=== PATIENT | male | born 1955 | race Caucasian/White ===

== ENCOUNTER 2018-07-31 15:39 | Inpatient (IN) | payer SELFPAY ==
[~2018-07-31] VITALS: Ht 180.3 cm; Wt 95.9 kg
[2018-07-31] VITALS (15 sets, daily range): BP systolic 94–154; BP diastolic 48–98
[2018-07-31] MEDS ORDERED: PANTOPRAZOLE 40 MG/10 ML VIAL IV ONE ×3 (17:05→17:30)
[2018-07-31 17:15] LABS: Basophils # (auto) 0 uL; Eosinophils # (auto) 0 uL; Lymphocytes # (auto) 0.8 uL; Monocytes # (auto) 0.1 uL; Nucleated Red Blood Cells % 0.2 %; White Blood Cell 3.9 10^3/uL (4.4-10.8)
[2018-07-31] MEDS ORDERED: SODIUM CHLORIDE 0.9% 1,000 ML IV ONE ×2 (17:15→17:30)
[2018-07-31 17:17] LABS: Basophils % (auto) 0.4 % (0.0-2.0); Hematocrit 11.7 % (41.0-53.0); Lymphocytes % (auto) 21.8 % (10.0-50.0); Mean Corpuscular Hemoglobin 44.4 pg (28.0-32.0); Mean Corpuscular Hgb Conc. 33.8 g/dL (32.0-36.0); Mean Corpuscular Volume 131.6 fL (80.0-100.0); Neutrophils # (auto) 2.8 uL; Neutrophils % (auto) 73.8 % (37.0-80.0); Platelet Count (auto) 44 10^3/uL (140-450); Red Blood Cells 0.89 10^6/uL (4.5-5.90)
[2018-07-31 17:26] LABS: INR 1.31 (0.9-1.15); Partial Thromboplastin Time 25.3 sec (23.78-33.04); Prothrombin Time 13.8 sec (9.27-12.13)
[2018-07-31 17:31] LABS: Red Cell Distribution Width 20.3 % (11.8-14.3)
[2018-07-31 17:33] LABS: Hemoglobin 3.9 g/dL (13.5-17.5)
[2018-07-31 17:35] LABS: Albumin 3.7 g/dL (3.4-5.0); BUN/Creatinine Ratio 12.9; Calcium 7.9 mg/dL (8.5-10.1)
[2018-07-31 17:37] LABS: Total Protein 6.8 g/dL (6.4-8.2)
[2018-07-31 17:49] LABS: Magnesium 2.6 mg/dL (1.6-2.6)
[2018-07-31] MEDS ORDERED: LORazepam 2MG/ML-1ML VIAL ONE (18:05)
[2018-07-31] MEDS ORDERED: LORazepam 2MG/ML-1ML VIAL IV ONE (18:15)
[2018-07-31] MEDS ORDERED: NITROGLYCERIN 0.4 MG SL TAB SL PRN (18:30)
[2018-07-31] MEDS ORDERED: LACTULOSE 20Gm/30ML SOLN PO PRN (18:30)
[2018-07-31] MEDS ORDERED: LORazepam 0.5 MG TAB PO PRN (18:30)
[2018-07-31] MEDS ORDERED: TEMAZEPAM 15 MG CAP PO PRN (18:30)
[2018-07-31] MEDS ORDERED: MORPHINE SULFATE 4 MG/ML SYR/VIAL IV PRN ×3 (18:30)
[2018-07-31] MEDS ORDERED: PROMETHAZINE HCL 25 MG/ML 1ML IV PRN (18:30)
[2018-07-31] MEDS: SODIUM CHLORIDE 0.9% 1,000 ML IV SCH (18:32)
--- NOTE | 2018-07-31 20:35 | NUR ---
Telemetry admit from ER LINN HUTCHISON SR admitted to Telemetry unit. Patient oriented to DARRIN BUENROSTRO RN primary RN, unit, room, bed, and unit policies regarding patient care and visiting hours. Patient now on continuous telemetry monitoring, tele box # 9 and telemetry reading on arrival to unit is sinus tachycardia. Son is at bedside. Patient is currently infusing his first unit of PRBCs. VSS WNL. Patient ambulated to the bed without assist. Patient on room air, weighed by bedscale and encouraged to call if they need something. All questions and concerns addressed, patient verbalized understanding.
--- NOTE | 2018-07-31 21:00 | NUR ---
Medication reconciliation Patient's son said he would bring a list of medications the patient takes at home tomorrow 08/01/18.
--- NOTE | 2018-07-31 21:35 | NUR ---
First unit of PRBCs transfused.
--- NOTE | 2018-07-31 22:12 | NUR ---
Second unit of packed red blood cells infusing. VS are 98.3 temperature, BP- 94/73, RR- 16, O2 SAT-97%, HR-94, patient is not complaining of pain at this time.
--- NOTE | 2018-07-31 22:27 | NUR ---
15 min since the second unit was infusing. Patient is not showing S/S of distress, pain, SOB, or adverse reaction. Will continue to monitor patient and vital signs.
[2018-08-01] VITALS (19 sets, daily range): BP systolic 91–132; BP diastolic 40–68
--- NOTE | 2018-08-01 00:30 | NUR ---
Second unit of PRBCs infused. Patient is not complaining of distress, SOB, or pain. Will reassess VS in one hour.
[2018-08-01 01:15] LABS: Hematocrit 16.9 % (41.0-53.0)
[2018-08-01 01:17] LABS: Hemoglobin 5.9 g/dL (13.5-17.5)
--- NOTE | 2018-08-01 01:21 | NUR ---
Critical lab value received. Hemoglobin is 5.9. Paged hospitalist.
--- NOTE | 2018-08-01 01:30 | NUR ---
One hour post transfusion vitals. BP-123/59. HR-90. RR-16. T-98.8. O2 sat-97%.
--- NOTE | 2018-08-01 02:20 | NUR ---
Hospitalist called back. New orders for two more units of PRBCs
--- NOTE | 2018-08-01 05:38 | NUR ---
First unit of PRBCs infusing. VSS WNL. Instructed patient to verbalize if he feels any adverse reactions to the blood, patient verbalized understanding. Will monitor patient closely for next 15 min.
--- NOTE | 2018-08-01 05:53 | NUR ---
First 15 min after transfusion began, patient is not showing S/S of distress or SOB. Patient verbalizes no pain. Will continue transfusion, increase rate, and continue to monitor vitals.
--- NOTE | 2018-08-01 07:39 | NUR ---
Closing shift note Patient is resting in bed. Third unit of blood is still transfusing. No S/S of distress, pain, or SOB. Will endorse care to Dima lord RN
--- NOTE | 2018-08-01 08:30 | NUR ---
THIRD UNIT OF BLOOD TRANSFUED Addendum: 08/01/18 at 0833 by Dima Butts RN RN THIRD UNIT OF BLOOD TRANSFUSED. NO S/S OF ASA, PT SITTING IN BED EATING BREAKFAST, SONS AT BEDSIDE. VS: 98.2, 74, 18, 125/57, 95% ON RA, 010. WILL CONTINUE TO MONITOR.
[2018-08-01 09:38] LABS: Hematocrit 20.5 % (41.0-53.0); Hemoglobin 7.1 g/dL (13.5-17.5)
[2018-08-01 09:54] LABS: Cholesterol 61 mg/dL (< 200); HDL Cholesterol 12 mg/dL (40-59); LDL Cholesterol 42 mg/dL (< 100); Triglycerides 164 mg/dL (< 150)
[2018-08-01] MEDS: PANTOPRAZOLE 40 MG TAB PO SCH (09:56)
[2018-08-01] MEDS: SODIUM CHLORIDE 0.9% 1,000 ML IV SCH ×2 (09:56→15:24)
--- NOTE | 2018-08-01 11:30 | NUR ---
FOURTH UNIT OF BLOOD STARTED AT 1130 THOUGH 22G CATHETER AT RIGHT FA @ 60ML/HR USING BLOOD TRANSFUSION TUBING. UNIT OF BLOOD VERIFIED BY ME AND KENNETH AGUIRRE. PT WAS INSTRUCTED TO NOTIFY NURSE ANY S/S OF CHILLS, WHEEZING, HEADACHE, N/V, BACK PAIN. VERBALIZED UNDERSTANDING. VS: 98.2, 74, 20, 125/57, 95% ON RA, 0/10. WILL CONTINUE TO MONITOR.
--- NOTE | 2018-08-01 11:45 | NUR ---
NO C/O PAIN/FEVER/CHILLS, SOB OR N/V. PRCBs INCREASED TO 120ML/HR. VS: 97.5, 85, 20, 118/52, 97% 0/10. WILL CONTINUE CARE.
--- NOTE | 2018-08-01 12:30 | NUR ---
NUTRITION CONSULT/ASSESSMENT NOTES Please refer to link notes of nutrition screen form filed under the intervention section of the plan of care for further details. Est. Needs: 1950 kcal to 2400 kcal (20-25 kcal/kgBW), 77 gms to 97 gms pro (0.8-1.0 gms/kgBW). Will continue to monitor pertinent labs and reassess nutrient need prn Thank you for this consult. Addendum: 08/01/18 at [address] Amended: Links added.
--- NOTE | 2018-08-01 14:10 | NUR ---
DR. RODRIGUEZ AT BEDSIDE FOR GI CONSULT. PLAN TO DO COLONOSCOPY ON SATURDAY.
--- NOTE | 2018-08-01 14:15 | NUR ---
FORTH UNIT OF PRBCs TRANSFUSED. NO ASA NOTED, NO C/O ITCHING, SOB, WHEEZING, PAIN, HEADACHE. VS: 98.1, 93, 18, 121/56, 97% ON RA, 0/10. WILL CONTINUE CARE.
[2018-08-01] MEDS ORDERED: LISI-275 PO (15:11)
[2018-08-01 15:48] LABS: Hemoglobin 8.2 g/dL (13.5-17.5)
--- NOTE | 2018-08-01 17:26 | NUR ---
assessment Patient is a 62 year old male who is alert and oriented. 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 Patient fell ill and came to our ER. Once discharged he will stay in the area for a couple days then head back to [place] with his son who is at bedside. Per consult patient wants information on advanced directive. I have provided patient with advanced directive. Addendum: 08/01/18 at 1728 by Shruthi Hernández Amended: Links added.
--- NOTE | 2018-08-01 19:11 | NUR ---
CARE ENDORSED TO GHAZALA AGUIRRE.
--- NOTE | 2018-08-01 21:10 | NUR ---
IV removal of the RAC IV DC'd with clean sterile technique, catheter fully intact. Pressure dressing applied to site. Patient tolerated well.
--- NOTE | 2018-08-01 21:25 | NUR ---
IV insertion IV access obtained, via clean sterile technique by inserting 20 gauge catheter at RIGHT HAND after 2 attempt(s). IV secured properly. No trauma to site. Patient tolerated well.
[2018-08-02] MEDS: SODIUM CHLORIDE 0.9% 1,000 ML IV SCH ×2 (04:51→13:30)
[2018-08-02 05:00] VITALS: BP 129/57
[2018-08-02 06:42] LABS: Basophils # (auto) 0 uL; Basophils % (auto) 0.2 % (0.0-2.0); Eosinophils # (auto) 0.1 uL; Hemoglobin 7.6 g/dL (13.5-17.5); Lymphocytes # (auto) 0.7 uL; Monocytes # (auto) 0.1 uL
[2018-08-02 06:46] LABS: Eosinophils % (auto) 1.9 % (0.0-7.0); Hematocrit 21.8 % (41.0-53.0); Lymphocytes % (auto) 26.1 % (10.0-50.0); Mean Corpuscular Hemoglobin 35.3 pg (28.0-32.0); Mean Corpuscular Hgb Conc. 34.9 g/dL (32.0-36.0); Mean Corpuscular Volume 101.2 fL (80.0-100.0); Monocytes % (auto) 2.1 % (0.0-12.0); Neutrophils % (auto) 69.7 % (37.0-80.0); Nucleated Red Blood Cells % 0.3 %; Platelet Count (auto) 30 10^3/uL (140-450); Red Blood Cells 2.15 10^6/uL (4.5-5.90); White Blood Cell 2.8 10^3/uL (4.4-10.8)
[2018-08-02 06:49] LABS: Red Cell Distribution Width 27.9 % (11.8-14.3)
--- NOTE | 2018-08-02 06:53 | NUR ---
Closing Shift Note Patient is resting in bed. No S/S of distress, SOB, or pain. Will endorse care to dayshift RN.
[2018-08-02 07:01] LABS: INR 1.34 (0.9-1.15); Prothrombin Time 14.1 sec (9.27-12.13)
[2018-08-02 07:06] LABS: Albumin 3.2 g/dL (3.4-5.0); BUN/Creatinine Ratio 16.8; Calcium 7.7 mg/dL (8.5-10.1); Potassium 3.8 mmol/L (3.5-5.1)
[2018-08-02 07:09] LABS: Bilirubin, Total 2.2 mg/dL (0.2-1.0); Total Protein 6.2 g/dL (6.4-8.2)
--- NOTE | 2018-08-02 07:55 | NUR ---
Opening Shift Note Assumed care of patient, AAOX4, breathing even, nonlabored, S1, S2, Abd soft nontender, LBM was yesterday, denied of dizziness or pain at this time, IV to Right hand intact/patent infusing with NS @ 100ml/hr. Instructed on POC and to call for assist PRN, bed locked in the lowest position, call light within easy reach, will continue to monitor for changes Q1hr and PRN.
[2018-08-02 08:00] VITALS: BP 115/46
[2018-08-02 08:28] VITALS: BP 115/46
[2018-08-02] MEDS: PANTOPRAZOLE 40 MG TAB PO SCH (09:11)
[2018-08-02 12:30] VITALS: BP 139/77
[2018-08-02 17:18] VITALS: BP 131/75
--- NOTE | 2018-08-02 18:09 | NUR ---
IV removal IV to right hand infiltrated, IV DC'd with sterile technique, catheter fully intact. Pressure dressing applied to site. Patient tolerated procedure well.
--- NOTE | 2018-08-02 18:10 | NUR ---
IV insertion IV access obtained, via clean sterile technique by inserting 22 gauge catheter at right FA after one attempt. IV secured properly. No trauma to site. Patient tolerated well.
--- NOTE | 2018-08-02 19:19 | NUR ---
CARE ENDORSED TO RATNA AGUIRRE.
--- NOTE | 2018-08-02 19:35 | NUR ---
Opening Shift Note Assumed care of patient, awake and alert oriented x4. No S/S of distress/SOB noted. Bed is in lowest locked position with bed rails up x2 and call light is within reach of the patient. Instructed on POC and to call for assist PRN.
[2018-08-02 22:00] VITALS: BP 123/70
[2018-08-03] VITALS (7 sets, daily range): BP systolic 119–141; BP diastolic 49–74
[2018-08-03] MEDS: SODIUM CHLORIDE 0.9% 1,000 ML IV SCH ×2 (06:10→13:30)
--- NOTE | 2018-08-03 06:52 | NUR ---
Closing note: Patient is resting in bed. No S/S of distress SOB noted with breaths even and unlabored. Bed is in lowest locked position with bed rails up x2 and call light is within reach of the patient. Will endorse care to day shift nurse.
--- NOTE | 2018-08-03 06:57 | NUR ---
Patient removed IV: Patients IV was found on the table top removed from arm by patient. Patient stated "it was irritating me so I took it out". No trauma to the site, and secured with gaze and coband. Will endorse to day shift nurse.
[2018-08-03 07:01] LABS: Basophils # (auto) 0 uL; Basophils % (auto) 0.1 % (0.0-2.0); Eosinophils # (auto) 0.1 uL; Lymphocytes # (auto) 0.8 uL; Lymphocytes % (auto) 31.9 % (10.0-50.0); Monocytes # (auto) 0.1 uL; Platelet Count (auto) 25 10^3/uL (140-450); White Blood Cell 2.5 10^3/uL (4.4-10.8)
[2018-08-03 07:04] LABS: Eosinophils % (auto) 2.5 % (0.0-7.0); Hematocrit 21.8 % (41.0-53.0); Hemoglobin 7.5 g/dL (13.5-17.5); Mean Corpuscular Hemoglobin 34.8 pg (28.0-32.0); Mean Corpuscular Hgb Conc. 34.5 g/dL (32.0-36.0); Mean Corpuscular Volume 100.9 fL (80.0-100.0); Monocytes % (auto) 2.4 % (0.0-12.0); Neutrophils # (auto) 1.5 uL; Neutrophils % (auto) 63.1 % (37.0-80.0); Nucleated Red Blood Cells % 0.2 %; Red Blood Cells 2.16 10^6/uL (4.5-5.90)
[2018-08-03 07:13] LABS: Albumin 3.2 g/dL (3.4-5.0); Bilirubin, Direct 0.7 mg/dL (0-0.2)
[2018-08-03 07:17] LABS: Red Cell Distribution Width 27.5 % (11.8-14.3)
[2018-08-03] MEDS: PANTOPRAZOLE 40 MG TAB PO SCH (10:49)
--- NOTE | 2018-08-03 10:53 | NUR ---
ATTEMPTED IV INSERTION ON BOTH LEFT AND RIGHT FOREARM. NOT SUCCESSFUL
--- NOTE | 2018-08-03 11:30 | NUR ---
RIGHT FOREARM IV SUCCESSFULLY INSERTED BY RN GARY AND STUDENT NURSE, WELL TOLERATED
[2018-08-03] MEDS ORDERED: GOLYTELY 4L KIT PO ONE (12:00)
--- NOTE | 2018-08-03 14:50 | NUR ---
PATIENT ADVISED OF ORDER FOR PLATELETS ALSO ADVISED THEY ARE DONOR PLATELETS AND ADVISED OF RISK OF ALLERGIC REACTION BY NURSE. PATIENT REQUESTED PHYSICIAN EXPLAIN BENEFITS AND RISKS OF PROCEDURE. CONSENT PRINTED OUT
--- NOTE | 2018-08-03 15:00 | NUR ---
lab called to advise platelets are not available in house and will be ordered
--- NOTE | 2018-08-03 18:36 | NUR ---
lab still awaiting delivery of platelets
--- NOTE | 2018-08-03 19:30 | NUR ---
Opening Shift Note Assumed care of patient, awake and alert oriented x4. Bed is in lowest locked position with bed rails up x2 and call light is within reach of the patient. No S/S of distress/SOB or pain noted. Instructed patient to drink the Golytely for tomorrows procedure, educated about its importance. Patient verbalized understanding. Instructed on POC and to call for assist PRN.
--- NOTE | 2018-08-03 20:15 | NUR ---
Received Pheresis Platelets from Lab: Received call that platelets have arrived and retrieved platelets. Verified with slabber light and to carry out and give to patient.
--- NOTE | 2018-08-03 20:24 | NUR ---
Platelet start: Verified platelets and patient with a second nurse. Hung platelets, vital signs stable at 98.6 oral temperature, 70 heart rate, 18 respiratory rate. 128/64 blood pressure. Patient is resting in bed alert oriented x4 and educated patient on signs of reaction. Patient verbalized understanding.
--- NOTE | 2018-08-03 20:50 | NUR ---
Patient tolerated platelet starting rate well, no signs of reaction noted and vital signs stable. Will increase rate as tolerated.
--- NOTE | 2018-08-03 23:25 | NUR ---
Hannah ARIZA from Hematology/Oncology in to see patient: Updated Hannah ARIZA from Hematology about patient status. She will be in to see and evaluate the patient.
--- NOTE | 2018-08-03 23:30 | NUR ---
Hannah ARIZA at bedside: Spoke with the patient and assessed the patient at bedside. She is to place orders for the patient.
[2018-08-04 00:41] VITALS: BP 137/75
--- NOTE | 2018-08-04 00:41 | NUR ---
Platelet end: Patient tolerated platelets well. No S/S of distress, SOB or pain noted. Patient is awake alert oriented x4 and resting in bed with breaths even and unlabored. Vital signs stable at 98.6 temperature, 70 heart rate, 18 respiratory rate, 137/75 blood pressure.
[2018-08-04] MEDS ORDERED: GOLYTELY 4L KIT PO ONE (04:00)
--- NOTE | 2018-08-04 04:10 | NUR ---
Woke patient to drink rest of Golytely: 1/3 of Golytley scheduled to be finished at this time over 2 hours. Woke up patient and educated the patient on the need to drink the rest of Golytley within a 2 hour period. Patient verbalized understanding.
--- NOTE | 2018-08-04 04:45 | NUR ---
Regarding Golytely: Patient drank a little bit of the 1/3 of golytely. Encouraged patient to drink the golytely and reminded patient they only have a few more hours to finish it. Educated patient about the need to finish the golytely within time frame
[2018-08-04 05:00] VITALS: BP 125/66
--- NOTE | 2018-08-04 06:00 | NUR ---
Patient tolerated 1/3 rest of golytely well. Finished almost all of it with only a little bit left at bottom of liter bottle. Rest of bottle removed from patient.
--- NOTE | 2018-08-04 06:53 | NUR ---
Closing note: Patient is resting in bed with breaths even and unlabored. No S/S of distress SOB noted. Bed is in lowest locked position with bed rails up x2 and call light is within reach of the patient. Will endorse care to day shift nurse.
[2018-08-04 07:34] LABS: Basophils # (auto) 0 uL; Eosinophils # (auto) 0 uL; Lymphocytes # (auto) 0.7 uL; Monocytes # (auto) 0.1 uL; Neutrophils # (auto) 1.4 uL; White Blood Cell 2.2 10^3/uL (4.4-10.8)
[2018-08-04 07:36] LABS: Basophils % (auto) 0.2 % (0.0-2.0); Eosinophils % (auto) 1.9 % (0.0-7.0); Hematocrit 20.4 % (41.0-53.0); Lymphocytes % (auto) 32.3 % (10.0-50.0); Mean Corpuscular Hemoglobin 34.7 pg (28.0-32.0); Mean Corpuscular Hgb Conc. 34.1 g/dL (32.0-36.0); Mean Corpuscular Volume 101.7 fL (80.0-100.0); Monocytes % (auto) 2.6 % (0.0-12.0); Nucleated Red Blood Cells % 0.1 %; Platelet Count (auto) 38 10^3/uL (140-450)
[2018-08-04 07:46] LABS: Albumin 3.2 g/dL (3.4-5.0); Calcium 8.4 mg/dL (8.5-10.1); Potassium 3.9 mmol/L (3.5-5.1)
[2018-08-04 07:54] LABS: % Iron Saturation 39.4 % (20-55)
[2018-08-04 07:56] LABS: BUN/Creatinine Ratio 11.7; Bilirubin, Total 2.6 mg/dL (0.2-1.0); CRP High Sensitivity 1.88 mg/dL (< 0.3); Total Protein 6.1 g/dL (6.4-8.2)
--- NOTE | 2018-08-04 08:00 | NUR ---
Opening Shift Note Assumed care of patient, awake and alert. No S/S of distress/SOB or pain. Pale looking. Patient is for EGD/Colonoscopy today to be performed by Dr. Keene. Instructed on POC and to call for assist PRN, will continue to monitor for changes Q1hr and PRN.
[2018-08-04 08:04] LABS: Red Cell Distribution Width 26.2 % (11.8-14.3)
[2018-08-04 08:09] VITALS: BP 115/50
--- NOTE | 2018-08-04 08:15 | NUR ---
HGB-7.0, plt. ct-38. Paged Dr. Keene about the results. Waiting for call back. Informed pre-op of results, spoke with Ankita AGUIRRE.
[2018-08-04] MEDS ORDERED: LIDOCAINE VISCOUS 2% 15ML UD ONE (08:30)
[2018-08-04] MEDS ORDERED: SODIUM CHLORIDE LOCK 10 ML ONE (08:30)
[2018-08-04] MEDS ORDERED: diphenhdrAMINE HCL 50 MG/1 ML VL ONE (08:31)
[2018-08-04 09:27] LABS: Ferritin 519.2 ng/mL (10-322); Free T4 (Free Thyroxine) 1.2 ng/dL (0.89-1.76)
[2018-08-04 09:28] LABS: Folate (Folic Acid) 10.81 ng/mL (5.38-24)
[2018-08-04] MEDS ORDERED: CYANOCOBALAMIN 500 MCG TAB PO SCH (10:00)
[2018-08-04] MEDS ORDERED: PNEUMOCOCCAL VACC POLYS 25 MCG/0.5 ML VIAL IM ONE (10:00)
[2018-08-04] MEDS: PANTOPRAZOLE 40 MG TAB PO SCH (10:00)
[2018-08-04] MEDS ORDERED: INFLUENZA QUAD 2018-2019 0.5 ML SYRG IM ONE (10:00)
[2018-08-04] MEDS: FOLIC ACID 1 MG TAB PO SCH (10:00)
[2018-08-04] MEDS: SODIUM CHLORIDE 0.9% 1,000 ML IV SCH (10:51)
--- NOTE | 2018-08-04 11:45 | NUR ---
Patient taken to Pre-op via bed for EGD/Colonoscopy to be performed by Dr. Keene. Gave reports to Dian AGUIRRE.
[2018-08-04] MEDS: fentaNYL CITRATE 100 MCG/2 ML VL ONE ×2 (13:04→13:14)
[2018-08-04] MEDS: MIDAZOLAM HCL 5 MG/ML-1ML VIAL ONE ×2 (13:04→13:14)
--- NOTE | 2018-08-04 14:10 | NUR ---
Patient back to her room S/P EGD/Colonoscopy performed by Dr. Keene. Patient is alert and oriented, not in respiratory distress. Bed alarm on and side rails up x2. Will continue care.
[2018-08-04 14:50] LABS: Hepatitis B Surface Antibody Negative
--- NOTE | 2018-08-04 15:09 | NUR ---
Nutrition Follow-up Notes Wt.: 94.9 kg as of yesterday. Pt's inside the rest room when rounded this morning. Pt's NPO, s/p EGD and Colonoscopy earlier, no signs of distress noted by RN earlier,to resume today on oral therapeutic diet with active order for 2 gms Na diet. Noted pt's for active Yasir/Oncology consult. Est. Needs: 1950 kcal to 2400 kcal (20-25 kcal/kgBW), 77 gms to 97 gms pro (0.8-1.0 gms/kgBW). Will continue to monitor pertinent labs and reassess nutrient need prn Labs: Ca 8.4 L, Tot aidan 2.6 H, LDH 2298 H, AST 40 H, C react prot 1.88 H, Tpro 6.1 L, Alb 3.2 L Skin: Alexi scale 20, low risk, skin intact per documentation nurse. GI: Pt had 10x BM this morning r/t Golytely per documentation nurse. PES: Altered nutrition related lab values r/t chronic medical condition aeb hyperglycemia, elev. Cr, LFTs, CRP, hyperbilirubinemia,hypocalcemia Will continue to monitor PO intake, skin status, pertinent labs and weight trend. F/u in 3 to 5 days. Rec.: 1.) If LFTs and Tot aidan continue trending up, consider Low Fat in addition to current therapeutic diet. 2.) Continue close supervision with meals 3.) Refer to RD for further nutrition education and weight monitoring upon discharged. 4.) Continue current plan of care.
[2018-08-04 15:12] LABS: Hepatitis A Total Antibody Positive
[2018-08-04 17:00] VITALS: BP 120/51
[2018-08-04 18:14] LABS: Hepatitis B Core Total AB Negative; Hepatitis B Surface Antigen Negative (Negative)
[2018-08-04 18:15] LABS: Hepatitis C Antibody Negative (Negative)
--- NOTE | 2018-08-04 19:05 | NUR ---
Opening Shift Note SBAR report received from TIMOTHY Gates. Assumed care of patient, awake and alert 4x and ambulatory. s/p colonoscopy and EGD. No S/S of distress/SOB or pain. Instructed on POC and to call for assistance PRN, will continue to monitor for changes Q1hr and PRN.Physical Assessment to follow.
[2018-08-04 20:05] VITALS: BP 130/67
[2018-08-04 22:00] VITALS: BP 130/67
[2018-08-05 05:00] VITALS: BP 121/53
[2018-08-05] MEDS: SODIUM CHLORIDE 0.9% 1,000 ML IV SCH (05:30)
--- NOTE | 2018-08-05 07:12 | NUR ---
Closing Shift Note SBAR report given to TIMOTHY Gates. Sleeping , No S/S of distress/SOB or pain. Instructed on POC and to call for assistance PRN. Safety precautions in place.
[2018-08-05 07:49] LABS: Basophils # (auto) 0 uL; Basophils % (auto) 0.3 % (0.0-2.0); Eosinophils # (auto) 0 uL; Hemoglobin 7.2 g/dL (13.5-17.5); Monocytes # (auto) 0.1 uL; Neutrophils # (auto) 1.1 uL; Nucleated Red Blood Cells % 0.1 %; Red Blood Cells 2.06 10^6/uL (4.5-5.90)
[2018-08-05 07:51] LABS: Eosinophils % (auto) 1.9 % (0.0-7.0); Hematocrit 20.8 % (41.0-53.0); Lymphocytes # (auto) 0.9 uL; Lymphocytes % (auto) 42.2 % (10.0-50.0); Mean Corpuscular Hemoglobin 34.7 pg (28.0-32.0); Mean Corpuscular Hgb Conc. 34.4 g/dL (32.0-36.0); Mean Corpuscular Volume 100.8 fL (80.0-100.0); Monocytes % (auto) 2.6 % (0.0-12.0); Platelet Count (auto) 32 10^3/uL (140-450)
--- NOTE | 2018-08-05 08:00 | NUR ---
Opening Shift Note Assumed care of patient, awake and alert. No S/S of distress/SOB or pain. Instructed on POC and to call for assist PRN, will continue to monitor for changes Q1hr and PRN.
[2018-08-05 08:10] LABS: BUN/Creatinine Ratio 12.2; Calcium 8.3 mg/dL (8.5-10.1); Potassium 3.9 mmol/L (3.5-5.1)
[2018-08-05 08:25] LABS: Red Cell Distribution Width 26.1 % (11.8-14.3)
[2018-08-05 09:00] VITALS: BP 115/70
[2018-08-05] MEDS: CYANOCOBALAMIN (B-12) 1000 MCG/1 ML VIAL IM SCH (09:54)
[2018-08-05] MEDS: FOLIC ACID 1 MG TAB PO SCH (09:54)
[2018-08-05] MEDS: PANTOPRAZOLE 40 MG TAB PO SCH (09:54)
--- NOTE | 2018-08-05 10:30 | NUR ---
HGB-7.2, Dr. Shaikh zaidi.
[2018-08-05 13:00] VITALS: BP 132/65
[2018-08-05 17:00] VITALS: BP 118/63
[2018-08-05 22:00] VITALS: BP 119/48
--- NOTE | 2018-08-06 03:09 | NUR ---
PNEUMONIA VACCINATION WAS GIVEN ON RIGHT UPPER ARM ON 08/04/2018 BY FUR FARMER RN DESCRIBED BY PATIENT.
[2018-08-06 05:00] VITALS: BP 117/44
[2018-08-06 06:18] LABS: Basophils # (auto) 0 uL; Basophils % (auto) 0.2 % (0.0-2.0); Lymphocytes # (auto) 0.9 uL; Monocytes # (auto) 0.1 uL; Neutrophils # (auto) 1.3 uL; Platelet Count (auto) 29 10^3/uL (140-450); White Blood Cell 2.3 10^3/uL (4.4-10.8)
[2018-08-06 06:22] LABS: Eosinophils # (auto) 0.1 uL; Eosinophils % (auto) 2.2 % (0.0-7.0); Hematocrit 20.9 % (41.0-53.0); Hemoglobin 7.2 g/dL (13.5-17.5); Lymphocytes % (auto) 38.8 % (10.0-50.0); Mean Corpuscular Hemoglobin 34.9 pg (28.0-32.0); Mean Corpuscular Hgb Conc. 34.6 g/dL (32.0-36.0); Mean Corpuscular Volume 100.9 fL (80.0-100.0); Monocytes % (auto) 5.1 % (0.0-12.0); Neutrophils % (auto) 53.7 % (37.0-80.0); Nucleated Red Blood Cells % 0.3 %; Red Blood Cells 2.07 10^6/uL (4.5-5.90)
[2018-08-06 06:43] LABS: Albumin 3.1 g/dL (3.4-5.0)
[2018-08-06 06:57] LABS: Bilirubin, Direct 0.6 mg/dL (0-0.2); Bilirubin, Total 1.4 mg/dL (0.2-1.0); Total Protein 6.2 g/dL (6.4-8.2)
[2018-08-06 07:05] LABS: Red Cell Distribution Width 25.4 % (11.8-14.3)
[2018-08-06 09:00] VITALS: BP 131/65
[2018-08-06] MEDS: CYANOCOBALAMIN (B-12) 1000 MCG/1 ML VIAL IM SCH (10:07)
[2018-08-06] MEDS: PANTOPRAZOLE 40 MG TAB PO SCH (10:07)
[2018-08-06] MEDS: FOLIC ACID 1 MG TAB PO SCH (10:07)
--- NOTE | 2018-08-06 12:30 | NUR ---
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 Dr. Casey is aware and will refer to Dr. Vila. Per Dr. Casey she will call the RN back. Continue care.
[2018-08-06] MEDS ORDERED: CYA100I IM (12:42)
[2018-08-06 12:57] VITALS: BP 119/56
[2018-08-06 13:00] VITALS: BP 119/56
--- NOTE | 2018-08-06 13:30 | NUR ---
Paged Dr. Vila regarding driving clearance per Dr. Casey thru his exchange. Waiting for call back.
[2018-08-06] MEDS ORDERED: CYA100I SL (14:45)
--- NOTE | 2018-08-06 15:15 | NUR ---
Patient may drive back to [place] per Dr. Vila that was confirmed by Dr. Casey.
--- NOTE | 2018-08-06 15:30 | NUR ---
Patient educated on how to self administer daily dose IM injections of Vitamin B-12 for the next 3 days. Printed instructions about IM administration and gave to the patient. Patient verbalized understanding.
--- NOTE | 2018-08-06 15:30 | NUR ---
Discharge instructions given as ordered. Encourage to follow up with PMD in [place] as instructed. All questions and concerns addressed. Patient verbalized understanding. Medication reconciliation form completed and copy given to patient. Needed vaccines given. IV removed with catheter intact, pressure dressing applied. Telemetry unit returned to [facility]. Patient ambulated with all personal belongings, accompanied by staff and family member. No distress noted at time of departure.
== END 2018-08-06 15:30 | disposition home or self-care (01) | DRG 808 ==
LOC: ER 15:47 → TELE 18:28 → TELE-EAST 20:35
PROVIDERS: ADMIT Internal Medicine; ATTEND Internal Medicine
PROC: 30233N1 Transfusion of Nonautologous Red Blood Cells into Peripheral Vein, Percutaneous Approach (ICD-10-PCS; 2018-07-31)
PROC: 30233R1 Transfusion of Nonautologous Platelets into Peripheral Vein, Percutaneous Approach (ICD-10-PCS; 2018-07-31)
PROC: 0DJD8ZZ Inspection of Lower Intestinal Tract, Via Natural or Artificial Opening Endoscopic (ICD-10-PCS; principal; 2018-08-04 12:59)
PROC: 0DJ08ZZ Inspection of Upper Intestinal Tract, Via Natural or Artificial Opening Endoscopic (ICD-10-PCS; 2018-08-04 12:59)
DX: D61.818 Other pancytopenia (principal); N17.0 Acute kidney failure with tubular necrosis; K92.2 Gastrointestinal hemorrhage, unspecified; D68.9 Coagulation defect, unspecified; D51.0 Vitamin B12 deficiency anemia due to intrinsic factor deficiency; K64.8 Other hemorrhoids; D53.9 Nutritional anemia, unspecified; D50.9 Iron deficiency anemia, unspecified; E66.9 Obesity, unspecified; F17.200 Nicotine dependence, unspecified, uncomplicated; I11.9 Hypertensive heart disease without heart failure; Z80.9 Family history of malignant neoplasm, unspecified; Z79.899 Other long term (current) drug therapy; Z68.29 Body mass index [BMI] 29.0-29.9, adult
CPT/HCPCS: 36415; 36430; 71045; 80048; 80053; 80061; 80076; 82378; 82607; 82668; 82728; 82746; 83010; 83036; 83540; 83550; 83615; 83735; 84439; 84443; 84484; 85014; 85018; 85025; 85045; 85610; 85652; 85730; 86141; 86225; 86235; 86704; 86706; 86708; 86803; 86850; 86880; 86900; 86901; 86920; 87340; 93005; 94761; 96361; 96374; 96375; A6257; C9113; G0378; J2250